=== PATIENT | male | born 1935 | race Caucasian/White ===

== ENCOUNTER 2017-09-09 14:51 | Emergency (ER) | payer MEDICARE ==
[2017-09-09 15:44] LABS: #Eosinphils 0.1 thou/uL (0.0-0.7); #Lymphocytes 2.1 thou/uL (1.20-3.40); #Monocytes 0.8 thou/uL (0.11-0.59); #Neutrophils 6.9 thou/uL (1.40-6.50); %Basophils 0.1 % (0.0-1.0); %Eosinophils 1.2 % (0.0-10.0); %Lymphocytes 21.5 % (21.0-51.0); %Monocytes 7.8 % (0.0-10.0); Hematocrit 34.6 % (42.0-52.0); Mean Platelet Volume 6.5 fL (7.4-10.4); Red Blood Cell (RBC) Count 3.68 mill/uL (4.70-6.10)
[2017-09-09 15:50] LABS: PTT 33.8 SEC (22.9-36.1); Prothrombin Time 15.3 SEC (12.0-14.7)
[2017-09-09 15:55] LABS: ALT (SGPT) 11 U/L (8-55); AST (SGOT) 21 U/L (5-34); Alkaline Phosphatase 98 U/L (40-150); Anion Gap 14 mmol/L (10-20); BUN (Urea Nitrogen) 14 mg/dL (8.4-25.7); Bilirubin, Total 0.8 mg/dL (0.2-1.2); CK (CPK) 40 U/L (30-200); Calc. Creatinine Clearance 0 mL/min (70-130); Calcium 9.7 mg/dL (7.8-10.44); Carbon Dioxide 28 mmol/L (23-31); Chloride 101 mmol/L (98-107); Estimated GFR-MDRD 73; Globulin 3.3 g/dL (2.4-3.5); Protein, Total 7.1 g/dL (5.8-8.1)
[2017-09-09 16:30] LABS: Troponin I 0.019 ng/mL (< 0.028)
[2017-09-09] MEDS ORDERED: ISOVUE-370 76%-LOCM 1 ML ONE (17:10)
--- NOTE | 2017-09-09 17:32 | RAD ---
PORTABLE AP CHEST X-RAY 09/09/17 HISTORY: Dyspnea. Patient has been getting progressively short of breath for over a week. COMPARISON: 10/10/14. FINDINGS: Dual lead left subclavian cardiac pacemaking device is noted in place with RA and RV leads. 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 There has been interval deformit y involving the right mid lung zone when compared to the prior study. There is increased opacity at t he right lung base. I am unsure if this is related to pleural and parenchymal scarring secondary to p ostsurgical changes or whether this is represents a more acute process related to pleural fluid and c onsolidation secondary to pneumonia. Left lung remains clear. The cardiac silhouette is enlarged. The pulmonary vasculature is within normal limits. 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 IMPRESSION: 1. There has been interval development of deformity of the right chest/right 6th rib when compar ed to the prior study. I am unsure if this is related to postsurgical changes or history of prior inj ury. In addition, there has been interval development of parenchymal opacity at the right lung base a nd right mid lung zone which could be related to pleural and parenchymal scarring. However, more acut e process such as pneumonia and right pleural effusion is a possibility. No intervening chest x-rays are present between this exam and the prior study in 2013 to evaluate for stability. CT thorax may be helpful for further evaluation. 2. Cardiomegaly. POS: [facility]
[2017-09-09] MEDS ORDERED: Furosemide 40 MG/4 ML VIAL ONE (17:46)
--- NOTE | 2017-09-09 19:30 | CT ---
CT ARTERIOGRAM CHEST WITH IV CONTRAST AND 3D MIP IMAGING 09/09/17 HISTORY: Chest pain. Dyspnea. FINDINGS: There is good contrast opacification of the pulmonary arteries and thoracic aorta. Great vessels are very tortuous with normal branching. The ascending aorta is dilated up 4.9 cm AP diameter. Calcificat ion is present throughout the arterial structures. Severe emphysematous changes and scarring are present throughout each lung. Moderate amount of fluid is loculated within the posterior lateral aspect of the right hemithorax with adjacent atelectasis of the right lung base. The fluid is of heterogeneous density, the higher density material being primar stormy posterior. Postoperative changes of the mediastinum are evident. Lobular dystrophic calcification is associated with the joint capsule of each shoulder, partially visualized. IMPRESSION: 1. No CT evidence of pulmonary embolus. 2. Moderate amount of loculated right pleural fluid as detailed above. Heterogeneous density sug gests neoplastic or hemorrhagic component. 3. Severe COPD. 4. Atherosclerosis. 5. Synovial chondromatosis involving the shoulders. 1. POS: [facility]
== END 2017-09-09 17:50 | disposition home or self-care (01) ==
LOC: ERS 14:51
DX: I11.0 Hypertensive heart disease with heart failure (principal); I50.9 Heart failure, unspecified; I25.10 Atherosclerotic heart disease of native coronary artery without angina pectoris; Z99.81 Dependence on supplemental oxygen; Z79.84 Long term (current) use of oral hypoglycemic drugs; Z79.899 Other long term (current) drug therapy; Z79.01 Long term (current) use of anticoagulants
CPT/HCPCS: 71010; 71275; 80053; 82550; 82553; 83880; 84484; 85025; 85379; 85610; 85730; 93005; 94760; 96374; J1940